=== PATIENT | female | born 2000 | race Caucasian/White ===

== ENCOUNTER 2021-08-25 14:54 | Emergency (ER) | payer OTHER ==
[~2021-08-25] VITALS: Ht 165.1 cm; Wt 68.0 kg
[2021-08-25 14:59] VITALS: BP_SYST 132
--- NOTE | 2021-08-25 15:06 | NUR ---
Triaged pt and placed in waiting room until bed becomes available. Pt c/o having vaginal pain that started last night after intercourse. Pt rates pain 10/10 and is constant. Pt is A&Ox4. VSS. Allergic to Bactrim. No known medical conditions. Coming from home ambulatory with steady gait.
--- NOTE | 2021-08-25 18:28 | NUR ---
Patient left without being seen.
== END 2021-08-25 18:27 | disposition left against medical advice (07) ==
LOC: SED 14:54
DX: R10.2 Pelvic and perineal pain (principal); Z53.21 Procedure and treatment not carried out due to patient leaving prior to being seen by health care provider